=== PATIENT | female | born 1950 | race Caucasian/White ===

== ENCOUNTER → 2016-08-17 07:05 | Day surgery (SDC) | payer OTHER ==
[~2016-08-17 07:05] MED LIST: Acetaminophen TAB* 325 MG PO PRN; Buffered Lidocaine 1% SYR 3ML* 3 ML/SYR SYRINGE INTRADERM ONE; Dexamethasone IV* 4 MG/ML 1 ML (4 MG) ONE; Midazolam* 1 MG/ML 5 ML VIAL (5 MG) ONE; Ondansetron INJ* 2 MG/ML VIAL ONE; Scopolamine 1.5 mg* PATCH ONE; fentaNYL* 50 MCG/ML 2 ML VIAL (100 MCG VIAL) ONE
[2016-08-17 09:37] VITALS: BP 111/64
--- NOTE | 2016-08-17 22:10 | OP ---
DATE OF OPERATION: 08/17/16 - [facility] DATE OF : 54 ATTENDING SURGEON: Howard Sarkar MD ANESTHESIOLOGIST: Abraham Lopez MD ANESTHESIA: Monitored anesthesia care. PRE-OP DIAGNOSIS: Cataract of the right eye. POST-OP DIAGNOSIS: Cataract of the right eye. OPERATIVE PROCEDURE: Cataract extraction of the right eye. IMPLANTS: SN60WF 15.5 diopter lens to the right eye. COMPLICATIONS: None. DESCRIPTION OF PROCEDURE: The patient was given phenylephrine 2.5% and cyclopentolate 1% eye drops to the operative eye in the preoperative area. The patient was brought to the operating room where a time-out was taken to identify the correct patient, site and side of the surgery. The patient's right eye was prepped and draped in the usual sterile fashion with 5% Betadine. A second time- out was taken to verify the correct patient, site and side of the surgery and correct lens selection. A lid speculum was placed to the right eye. A 1-mm paracentesis blade was used to make a clear corneal incision in the superotemporal position. Preservative free 1% lidocaine was injected into the anterior chamber. DuoVisc was then injected into the anterior chamber. A 2.75 mm keratome blade was used to make a make a triplanar incision at the inferotemporal position. A cystotome was used to initiate a capsulorrhexis, which was completed with Utrata forceps in a continuous and curvilinear manner. Hydrodissection lens was then performed with BSS on the cannula. The lens could be spun in the capsular bag. The phacoemulsification handpiece was then used with a divide and conquer technique to remove the nucleus in its entirety with 9.28 CDE. The I/A handpiece was then used to remove the residual cortical lens material. DuoVisc was then used to inflate the capsular bag. The planned SN60WF 15.5 diopter lens was then injected into the capsular bag. The residual DuoVisc was then removed from the eye with the I/A hand-piece. The corneal incisions were then hydrated and no leaks occurred at physiologic pressure around 20 mmHg per palpation. The lid speculum was then removed and drapes removed. Maxitrol ointment was then placed on the surface of the operative eye. An adhesive patch and shield were then placed over the operative eye. The patient was taken to the postoperative area in stable condition. [id number] #: [id number] JOHN
== END | disposition home or self-care (01) ==
LOC: OREAST 07:05
PROVIDERS: ATTEND Student in an Organized Health Care Education/Training Program
DX: H25.811 Combined forms of age-related cataract, right eye (principal); Z98.42 Cataract extraction status, left eye; Z96.1 Presence of intraocular lens; H33.312 Horseshoe tear of retina without detachment, left eye; I34.1 Nonrheumatic mitral (valve) prolapse; F43.10 Post-traumatic stress disorder, unspecified
CPT/HCPCS: A9270-GY; J1100; J2250; J2405; J3010; V2632